=== PATIENT | female | born 1935 | race Caucasian/White ===

== ENCOUNTER 2018-01-14 14:00 | Outpatient (RCR) | payer MEDICARE | END 2018-01-15 | LOC: PT 14:00 | PROVIDERS: ATTEND Specialist | DX: S62.390A Other fracture of second metacarpal bone, right hand, initial encounter for closed fracture (principal); S82.891A Other fracture of right lower leg, initial encounter for closed fracture; M25.571 Pain in right ankle and joints of right foot; M25.671 Stiffness of right ankle, not elsewhere classified | CPT/HCPCS: 97110 ×5; 97161; 97165; G8978; G8979; G8987; G8988 ==

== ENCOUNTER 2018-01-29 13:00 | Outpatient (RCR) | payer MEDICARE | END 2018-02-14 | LOC: PT 13:00 | PROVIDERS: ATTEND Specialist | DX: S62.306D Unspecified fracture of fifth metacarpal bone, right hand, subsequent encounter for fracture with routine healing (principal); S82.891D Other fracture of right lower leg, subsequent encounter for closed fracture with routine healing; M25.541 Pain in joints of right hand; M25.571 Pain in right ankle and joints of right foot; M25.671 Stiffness of right ankle, not elsewhere classified; R53.1 Weakness; M62.81 Muscle weakness (generalized) | CPT/HCPCS: 97110 ×6; 97139; G8979; G8980 ==

== ENCOUNTER 2018-02-02 20:50 | Emergency (ER) | payer MEDICARE ==
[2018-02-02] MEDS ORDERED: ASPIRIN 325 MG TAB PO ONE (22:15)
[2018-02-02] MEDS ORDERED: ENOXAPARIN SOD INJ 60 MG/0.6 ML SYR SC STA (22:23)
[2018-02-02 22:29] VITALS: BP 167/96
[2018-02-02] MEDS ORDERED: METOPROLOL TARTRATE 25 MG TAB PO ONE (22:30)
== END 2018-02-02 23:06 | disposition home or self-care (01) ==
LOC: FSED 20:50
DX: R00.2 Palpitations (principal); I48.91 Unspecified atrial fibrillation; E11.65 Type 2 diabetes mellitus with hyperglycemia; I10 Essential (primary) hypertension; E78.5 Hyperlipidemia, unspecified
CPT/HCPCS: 71046; 80053; 81003; 82553; 84484; 85025; 93005; 96372; 99284; J1650

== ENCOUNTER → 2018-04-07 | Outpatient (CLI) | payer MEDICARE ==
--- NOTE | 2018-04-07 12:42 | Diagnostic Imaging Report ---
Right knee MRI without contrast. History: Knee pain. Meniscus tear. Decreased range of motion. Comparison: None. Technique: Multiplanar multi-sequence MRI of the knee without contrast. Findings: Medial compartment: There is a complex tear involving the posterior horn and body segments of the medial meniscus. Meniscal tissue is displaced to the periphery. There is reactive bone marrow edema at the periphery of the medial tibial plateau. The medial compartmental articular cartilage surfaces are within the regions of fraying and fissuring. The medial collateral ligament complex is intact. Lateral compartment: There is a complex lateral meniscus tear involving the posterior horn and body segments. The lateral compartmental articular cartilage surfaces are within with regions of fraying and fissuring. The lateral collateral ligament complex is intact. There is a small chondroma in the lateral femoral condyle. Intercondylar notch: The ACL and PCL are intact. Patellofemoral compartment: There is articular cartilage fraying and fissuring in the patellofemoral compartment Extensor mechanism: The quadriceps and patellar tendons are normal. Other findings: There is a joint effusion and synovitis. There is no acute fracture, subluxation or avascular necrosis. There is a small lobulated Sands's cyst. 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 Complex lateral meniscus tear with mild degenerative arthrosis in the lateral compartment of the knee. Articular cartilage fraying and fissuring in the patellofemoral compartment. Signed by: Dr. Duncan Mckinney M.D. on 04/07/2018 12:39 PM
== END ==
LOC: MRI 10:26
PROVIDERS: ATTEND Specialist
DX: S83.241A Other tear of medial meniscus, current injury, right knee, initial encounter (principal)

== ENCOUNTER 2018-04-13 15:39 | Outpatient (RCR) | payer MEDICARE | END 2018-04-17 | LOC: PT 15:39 | PROVIDERS: ATTEND Specialist | DX: M25.561 Pain in right knee (principal) | CPT/HCPCS: 97110; 97161; G8978; G8979; G8980 ==

== ENCOUNTER → 2018-05-27 | Day surgery (SDC) | payer MEDICARE ==
[2018-05-25 15:06] LABS: BASOPHILS % 0.4 % (0.0-1.0); EOSINOPHILS # (AUTO) 0.2 (0.0-0.4); EOSINOPHILS % 2.6 % (0.0-6.0); HEMATOCRIT 36.7 % (34.2-44.1); HEMOGLOBIN 11.8 g/dL (12.0-16.0); LYMPHOCYTES # (AUTO) 2.8 (1.0-3.2); LYMPHOCYTES % 36.9 % (18.0-39.1); MEAN CORPUSCULAR HEMOGLOBIN 30.4 pg (28-32); MEAN CORPUSCULAR HGB CONC 32.2 g/dL (31-35); MEAN CORPUSCULAR VOLUME 94.6 fL (81-99); MONOCYTES # (AUTO) 0.8 (0.2-0.8); MONOCYTES % 10.3 % (4.4-11.3); NEUTROPHILS # (AUTO) 3.7 (2.1-6.9); NEUTROPHILS % 49.5 % (38.7-80.0); PLATELET COUNT 199 x10e3/uL (140-360); RED BLOOD COUNT 3.88 x10e6/uL (3.6-5.1); RED CELL DISTRIBUTION WIDTH 13.3 % (11.7-14.4)
--- NOTE | 2018-05-25 15:31 | Diagnostic Imaging Report ---
EXAMINATION: PA and lateral views of the chest. COMPARISON: None CLINICAL HISTORY: Preoperative exam for knee surgery DISCUSSION: Lungs are well-inflated. No focal airspace consolidation, pleural effusion, or pneumothorax. Minimal atherosclerotic calcification of the aortic arch. Otherwise unremarkable cardiomediastinal contour. No acute osseous abnormality. IMPRESSION: No acute cardiopulmonary abnormalities. Signed by: Dr. Rommel Stroud M.D. on 05/25/2018 3:28 PM
[~2018-05-27] MED LIST: ALLEGRA ALLERG180 MG PO; AMLODIPINE BESYL5 MG PO; BUPIVACAINE 0.5%/EPI 30 ML SDV INJ ONE; CALCIUM600 MG PO; CLINDAMYCIN PHOS 900MG/ 50ML 50 ML IV ONE; DEXAMETHASONE SOD PHOS INJ 4 MG/ML VIAL ONE; ESTER-C 1,0001 EACH PO; FENTANYL CITRATE/PF 100MCG/2 ML INJ ONE; IBUPROFEN400 MG PO; JANUMET 50-5001 EACH PO; LIDOCAINE HCL 2% LOCAL INJ 5 ML SDV VIAL INJ ONE; LOSARTAN POTAS100 MG PO; MAGNESIUM500 MG PO; METOPROLOL SUCC25 MG PO; MULTIVITAMINS1 EAC7 PO; ONDANSETRON HCL INJ 2 MG/ML VIAL ONE; PROPOFOL IV EMULSION 10 MG/ML 20 ML VIAL ONE; SERTRALINE HCL100 MG PO; SEVOFLURANE INHAL SOLN 250 ML PEN BTL ONE; SIMVASTATIN40 MG PO; TURMERIC PO; VITAMIN D32000 UNIT PO; XARELTO20 MG PO
[2018-05-27 09:30] VITALS: BP 123/70
--- NOTE | 2018-05-27 19:53 | Operative Report ---
DATE OF PROCEDURE: May 27, 2018 PREOPERATIVE DIAGNOSES: 1. Right knee medial meniscus tear. 2. Right knee degenerative joint disease of the knee. POSTOPERATIVE DIAGNOSES: 1. Right knee medial meniscus tear. 2. Right knee lateral meniscus tear. 3. Right knee degenerative joint disease of the knee. OPERATIONS AND PROCEDURES PERFORMED: Patient underwent: 1. Right knee examination under anesthesia. 2. Right knee arthroscopy. 3. Right knee partial medial meniscectomy. 4. Right knee partial lateral meniscectomy. 5. Right knee chondroplasty of the patella, the trochlea, the medial femoral condyle, the medial tibial plateau, the lateral femoral condyle, and lateral tibial plateau. CYTOLOGY TECHNOLOGIST: Rima Rosales IV FLUIDS: As per the anesthesia record. BLOOD LOSS: Minimal. BRIEF DESCRIPTION OF PATIENT'S OPERATIVE PROCEDURE: Ms. Mcdonald was taken to the operating room and placed in the supine position on the operating room table. Following the induction of general anesthesia, the patient's right lower extremity was examined under anesthesia. She was found to have a mild effusion within the knee joint, but an otherwise ligamentously stable knee. The patient's lower extremity was prepped and draped in a standard surgical fashion. A 2-portal technique was used to provide this patient arthroscopic evaluation of the knee joint. Examination of the suprapatellar pouch and medial and lateral gutters found no evidence of loose bodies. There was, however, evidence of chondromalacia of the patellar and trochlear surfaces. The scope was advanced into the medial compartment. Examination of the medial compartment demonstrated a torn medial meniscus. There was also chondromalacia of the articulating surfaces. A combination of biting forceps and a motorized shaver were used to resect the torn portion of the meniscus. Chondroplasties of the medial femoral condyle and medial tibial plateau were performed at this time. The scope was advanced into the intercondylar notch, and the anterior cruciate ligament was identified and found to be intact. Scope was then advanced into the lateral compartment and a lateral meniscus tear was encountered. There was also chondromalacia of articulating surfaces. A combination of biting forceps and a motorized shaver were used to resect the torn portion of the meniscus. Chondroplasties of the lateral femoral condyle and lateral tibial plateau were performed at this time. Scope was then placed in the suprapatellar pouch. A chondroplasty of patella and trochlea was performed. The knee was deflated of its sterile normal saline. The portal sites were closed. Sterile dressings were applied, and the patient was awakened and taken to the postanesthesia care unit in stable condition. Rima Rosales acted as a statistical assistant for this case was necessary for both prepping and draping the patient as well as positioning of the leg and the closing of the wounds that allowed this case to be successful. Job#: [id number]
--- OUTSIDE RECORDS SUMMARY | 2018-06-02 12:30 | XMS REPORT ---
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 Allergies, Adverse Reactions, Alerts This patient has no known allergies or adverse reactions. Medications This patient has no known medications. Results Test Description Test Time Test Comments Text Results Atomic Results Result Comments CHEST 2 VIEWS 2018-05-25 15:26:00 [place] [address] Patient Name: MOHIT [place] MR #: [id number] : 1935 Age/Sex: 82/F Req #: [id number] [facility] Physician: Ordered by: MARTA MARRERO MD Report #: [id number] Location: OR Room/Bed: Procedure: [id number] DX/CHEST 2 VIEWS Exam Date: 05/25/18 Exam Time: 1509 REPORT STATUS: Signed EXAMINATION: PA and lateral views of the chest. COMPARISON: None CLINICAL HISTORY: Preoperative exam for knee surgery DISCUSSION: Lungs are well-inflated. No focal airspace consolidation, pleural effusion, or pneumothorax. Minimal atherosclerotic calcification of the aortic arch. Otherwise unremarkable cardiomediastinal contour. No acute osseous abnormality. IMPRESSION: No acute cardiopulmonary abnormalities. Signed by: Dr. Jaleesa Donohue M.D. on 05/25/2018 3:28 PM Dictated By: JALEESA DONOHUE MD 152 Transcribed By: WARREN on 05/25/188 COPY TO: MARTA MARRERO MD MRI RIGHT KNEE WO 2018-04-07 12:31:00 [facility] [address] [address] Patient Name: MOHIT NJ MR #: [id number] : 1935 Age/Sex: 82/F Req #: [id number] Adm Physician: Ordered by: MARTA MARRERO MD Report #: [id number] Location: MRI Room/Bed: Procedure: [id number] MRI/MRI RIGHT KNEE WO Exam Date: Exam Time: REPORT STATUS: Signed Right knee MRI without contrast. History: Knee pain. Meniscus tear. Decreased range of motion. Comparison: None. Technique: Multiplanar multi- sequence MRI of the knee without contrast. Findings: Medial compartment: There is a complex tear involving the posterior horn and body segments of the medial meniscus. Meniscal tissue is displaced to the periphery. There is reactive bone marrow edema at the periphery of the medial tibial plateau. The medial compartmental articular cartilage surfaces are within the regions of fraying and fissuring. The medial collateral ligament complex is intact. Lateral compartment: There is a complex lateral meniscus tear involving the posterior horn and body segments. The lateral compartmental articular cartilage surfaces are within with regions of fraying and fissuring. The lateral collateral ligament complex is intact. There is a small chondroma in the lateral femoral condyle. Intercondylar notch: The ACL and PCL are intact. Patellofemoral compartment: There is articular cartilage fraying and fissuring in the patellofemoral compartment Extensor mechanism: The quadriceps and patellar tendons are normal. Other findings: There is a joint effusion and synovitis. There is no acute fracture, subluxation or avascular necrosis. There is a small lobulated Sands's cyst. 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 Complex lateral meniscus tear with mild degenerative arthrosis in the lateral compartment of the knee. Articular cartilage fraying and fissuring in the patellofemoral compartment. Signed by: Dr. Duncan Mckinney M.D. on 04/07/2018 12:39 PM Dictated By: DUNCAN MCKINNEY MD, MD [id number] Transcribed By: WARREN on 04/07/18 1239 COPY TO: MARTA MARRERO MD
== END | disposition home or self-care (01) ==
LOC: OR 06:01
PROVIDERS: ATTEND Specialist
DX: S83.221A Peripheral tear of medial meniscus, current injury, right knee, initial encounter (principal); S83.281A Other tear of lateral meniscus, current injury, right knee, initial encounter; M22.41 Chondromalacia patellae, right knee; M17.11 Unilateral primary osteoarthritis, right knee; G62.9 Polyneuropathy, unspecified; G56.01 Carpal tunnel syndrome, right upper limb; E11.9 Type 2 diabetes mellitus without complications; I44.0 Atrioventricular block, first degree; I10 Essential (primary) hypertension; I48.91 Unspecified atrial fibrillation; X58.XXXA Exposure to other specified factors, initial encounter; Z01.810 Encounter for preprocedural cardiovascular examination; Z01.812 Encounter for preprocedural laboratory examination; Z01.818 Encounter for other preprocedural examination; Z88.0 Allergy status to penicillin; Z79.02 Long term (current) use of antithrombotics/antiplatelets; Z87.891 Personal history of nicotine dependence
CPT/HCPCS: 29880; 36415 ×2; 71046; 82948; 85025; 93005; J1100; J2001; J2405

== ENCOUNTER → 2018-07-17 | Outpatient (RCR) | payer MEDICARE ==
[~2018-07-17] MED LIST changes: -BUPIVACAINE 0.5%/EPI 30 ML SDV INJ ONE; -CLINDAMYCIN PHOS 900MG/ 50ML 50 ML IV ONE; -DEXAMETHASONE SOD PHOS INJ 4 MG/ML VIAL ONE; -FENTANYL CITRATE/PF 100MCG/2 ML INJ ONE; -LIDOCAINE HCL 2% LOCAL INJ 5 ML SDV VIAL INJ ONE; -ONDANSETRON HCL INJ 2 MG/ML VIAL ONE; -PROPOFOL IV EMULSION 10 MG/ML 20 ML VIAL ONE; -SEVOFLURANE INHAL SOLN 250 ML PEN BTL ONE
== END ==
LOC: PT 06-29 13:52
PROVIDERS: ATTEND Specialist
DX: M25.561 Pain in right knee (principal); M25.661 Stiffness of right knee, not elsewhere classified; M62.81 Muscle weakness (generalized); R26.9 Unspecified abnormalities of gait and mobility
CPT/HCPCS: 97110 ×7; 97162; G8978; G8979

== ENCOUNTER 2018-07-29 14:00 | Outpatient (RCR) | payer MEDICARE | END 2018-08-17 | LOC: PT 14:00 | PROVIDERS: ATTEND Specialist | DX: M25.561 Pain in right knee (principal); M25.661 Stiffness of right knee, not elsewhere classified; R26.9 Unspecified abnormalities of gait and mobility; M62.81 Muscle weakness (generalized) | CPT/HCPCS: 97110 ×3; G8979; G8980 ==

== ENCOUNTER 2019-06-19 14:51 | Emergency (ER) | payer MEDICARE ==
[~2019-06-19] VITALS: Ht 160 cm; Wt 58.5 kg
[2019-06-19] MEDS ORDERED: CEFTRIAXONE SOD 1 GM VIAL IM ONE (15:15)
[2019-06-19 15:29] VITALS: BP 116/54
== END 2019-06-19 15:45 | disposition home or self-care (01) ==
LOC: FSED 14:51
DX: N30.00 Acute cystitis without hematuria (principal); R10.2 Pelvic and perineal pain; I10 Essential (primary) hypertension; E11.9 Type 2 diabetes mellitus without complications; Z79.01 Long term (current) use of anticoagulants; Z79.84 Long term (current) use of oral hypoglycemic drugs
CPT/HCPCS: 81003; 96372; 99283; J0696

== ENCOUNTER 2020-08-25 08:31 | Emergency (ER) | payer MEDICARE ==
[~2020-08-25] VITALS: Ht 162.6 cm; Wt 60.0 kg
[2020-08-25] MEDS ORDERED: METFORMIN HCL500 MG PO (09:31)
[2020-08-25] MEDS ORDERED: PEPCID AC10 MG PO (09:31)
[2020-08-25] MEDS ORDERED: VITAMIN B-121000 MCG PO (09:31)
[2020-08-25] MEDS ORDERED: NASACORT16.9 ML (09:31)
[2020-08-25] MEDS ORDERED: MIRALAX17 GM PO (09:31)
[2020-08-25] MEDS ORDERED: COQ-10100 MG (09:31)
[2020-08-25] MEDS ORDERED: TAPAZOLE5 MG PO (09:31)
[2020-08-25 09:33] VITALS: BP 165/72
[2020-08-25] MEDS ORDERED: ACETAMINOPHEN 325 MG TAB PO ONE (10:00)
[2020-08-25] MEDS ORDERED: CEPHALEXIN500 MG PO (10:52)
[2020-08-25] MEDS ORDERED: TYLENOL # 31 EA PO (10:54)
== END 2020-08-25 11:14 | disposition home or self-care (01) ==
LOC: FSED 08:53
DX: S60.212A Contusion of left wrist, initial encounter (principal); S61.512A Laceration without foreign body of left wrist, initial encounter; W22.03XA Walked into furniture, initial encounter; Y92.008 Other place in unspecified non-institutional (private) residence as the place of occurrence of the external cause; I10 Essential (primary) hypertension; E11.9 Type 2 diabetes mellitus without complications; E78.5 Hyperlipidemia, unspecified; K21.9 Gastro-esophageal reflux disease without esophagitis; E05.90 Thyrotoxicosis, unspecified without thyrotoxic crisis or storm
CPT/HCPCS: 99284

== ENCOUNTER 2021-05-11 11:21 | Emergency (ER) | payer MEDICARE, OTHER ==
[~2021-05-11] VITALS: Ht 160 cm; Wt 59.0 kg
[~2021-05-11 11:21] MED LIST changes: +CEPHALEXIN500 MG PO; +COQ-10100 MG; +METFORMIN HCL500 MG PO; +MIRALAX17 GM PO; +NASACORT16.9 ML; +PEPCID AC10 MG PO; +TAPAZOLE5 MG PO; +TYLENOL # 31 EA PO; +VITAMIN B-121000 MCG PO
== END 2021-05-11 13:36 | disposition home or self-care (01) ==
LOC: FSED 11:56
DX: S20.212A Contusion of left front wall of thorax, initial encounter (principal); W01.198A Fall on same level from slipping, tripping and stumbling with subsequent striking against other object, initial encounter; Y93.01 Activity, walking, marching and hiking; Y92.008 Other place in unspecified non-institutional (private) residence as the place of occurrence of the external cause; E11.9 Type 2 diabetes mellitus without complications; I10 Essential (primary) hypertension; I48.91 Unspecified atrial fibrillation
CPT/HCPCS: 71101; 99282

== ENCOUNTER 2023-02-04 10:11 | Emergency (ER) | payer MEDICARE ==
[~2023-02-04] VITALS: Ht 160 cm; Wt 57.6 kg
[2023-02-04 10:50] VITALS: O2SAT 98
== END 2023-02-04 12:46 | disposition home or self-care (01) ==
LOC: FSED 10:15
DX: M25.572 Pain in left ankle and joints of left foot (principal); M25.775 Osteophyte, left foot; I10 Essential (primary) hypertension; E11.9 Type 2 diabetes mellitus without complications; E78.5 Hyperlipidemia, unspecified; I48.91 Unspecified atrial fibrillation; K21.9 Gastro-esophageal reflux disease without esophagitis
CPT/HCPCS: 99282